=== PATIENT | female | born 1955 | race Caucasian/White ===

== ENCOUNTER 2016-03-05 18:40 | Emergency (ER) | payer OTHER ==
[2016-03-05 19:01] VITALS: BP 115/95; PULSE 90; RESP 14; TEMP 98.6; O2SAT 93
[2016-03-05] MEDS ORDERED: IBUPROFEN 600 MG TAB PO ONE (19:29)
--- NOTE | 2016-03-05 19:35 | UCPHY ---
H & P Time Seen by Provider: 03/05/16 18:48 Patient Type: New HPI/ROS: 61-year-old female presents complaining of slipped on the 2 stairs leading into her garage and believes she landed on her buttocks is unsure what she did with her right arm but nail has right shoulder and right upper arm pain. No numbness or tingling in her arm. Review of systems General no fever no chills no weakness HEENT no eye pain no eye discharge. No eye redness, no sore throat Respiratory no cough, no shortness of breath Cardiac no chest pain, no peripheral edema GI no abdominal pain, no diarrhea, no constipation, no nausea, no vomiting no flank pain, no hematuria, no dysuria Musculoskeletal positive myalgias, positive joint pain Heme no easy bruising, no easy bleeding Endo no polyuria, no polydipsia Skin no rashes, no pruritus Neuro no syncope, no dizziness, no headaches Psych is no suicidal ideation, no homicidal ideation Past Medical/Surgical History: Depression GERD Social History: Denies alcohol or drug use Smoking Status: Never smoked Physical Exam: Alert and oriented in no acute distress nontoxic appearance, afebrile Atraumatic normocephalic Neck no JVD Lungs clear to auscultation, no respiratory distress Heart regular rate and rhythm Extremities no cyanosis clubbing edema Right upper extremity with tenderness to palpation at mid humerus, no deformity no swelling no ecchymosis Decreased range of motion at shoulder No tenderness to palpation at elbow rest fingers Good distal pulses Constitutional: Initial Vital Signs Temperature (C) 37 C 03/05/16 18:50 Heart Rate 90 03/05/16 18:50 Respiratory Rate 14 03/05/16 18:50 Blood Pressure 115/95 H 03/05/16 18:50 O2 Sat (%) 93 03/05/16 18:50 O2 Delivery Mode Room Air Allergies/Adverse Reactions: Penicillins Allergy (Verified 03/05/16 18:49) Home Medications: Medication Instructions Recorded PRILOSEC 03/05/16 Prozac 20 MG (*) 03/05/16 Medical Decision Making - Diagnostics Imaging: Right shoulder Right humerus ED Course/Re-evaluation: Patient seen and evaluated for right shoulder and upper arm pain after a fall onto steps at home X-rays reveal No fracture no dislocation Impression Right shoulder sprain Plan Sling Follow-up primary care physician - Data Points Medications Given: Discontinued Medications Ibuprofen (Motrin) 200 mg PO EDNOW ONE Stop: 03/05/16 19:48 Last Admin: 03/05/16 19:49 Dose: 200 mg Ibuprofen (Motrin) 400 mg PO EDNOW ONE Stop: 03/05/16 19:48 Last Admin: 03/05/16 19:50 Dose: 400 mg Departure - Departure Disposition: Home, Routine, Self-Care Clinical Impression: Right shoulder strain, Upper arm pain Condition: Good Instructions: Shoulder Sprain (ED) Referrals: Sarah Gardiner MD [Primary Care Provider] - As per Instructions Stand Alone Forms: Work Excuse - PQRS PQRS Measurement: Not applicable
[2016-03-05] MEDS ORDERED: IBUPROFEN 200 MG TAB PO ONE ×2 (19:47)
--- NOTE | 2016-03-05 19:52 | DX ---
Right shoulder - 3 views dated March 05, 2016 Indication: Fall. Pain. Findings: The bones are anatomically aligned. No acute fracture. Minimal osteoarthritis involves the acromioclavicular joint. The coracoclavicular and acromioclavicular intervals are normal. Impression: Negative. No acute fracture or dislocation.
--- NOTE | 2016-03-05 19:55 | DX ---
Right humerus - 2 views dated March 05, 2016 Indication: Pain. Fall. Findings: The humerus is intact and anatomically aligned. No acute fracture. Impression: Negative. No acute fracture.
== END 2016-03-05 20:35 | disposition home or self-care (01) ==
LOC: CED 18:40
DX: S43.401A Unspecified sprain of right shoulder joint, initial encounter (principal); M79.621 Pain in right upper arm; W10.9XXA Fall (on) (from) unspecified stairs and steps, initial encounter
CPT/HCPCS: 73030-PO; 73060-PO; 99203-PO; G0463-PO

== ENCOUNTER → 2017-02-23 | Outpatient (CLI) | payer OTHER | LOC: FIMAGING 12:52 | PROVIDERS: ATTEND Family Medicine | DX: Z12.31 Encounter for screening mammogram for malignant neoplasm of breast (principal) | CPT/HCPCS: G0202 ==

== ENCOUNTER → 2018-03-07 | Outpatient (CLI) | payer OTHER | LOC: FIMAGING 15:40 | PROVIDERS: ATTEND Family Medicine | DX: Z12.31 Encounter for screening mammogram for malignant neoplasm of breast (principal) ==

== ENCOUNTER → 2018-03-20 | Outpatient (CLI) | payer OTHER | LOC: FIMAGING 14:17 | PROVIDERS: ATTEND Family Medicine | DX: R92.8 Other abnormal and inconclusive findings on diagnostic imaging of breast (principal) ==

== ENCOUNTER → 2018-07-08 | Outpatient (CLI) | payer OTHER | LOC: EMCIMAGING 07:23 | PROVIDERS: ATTEND Family Medicine | DX: R10.9 Unspecified abdominal pain (principal); D25.0 Submucous leiomyoma of uterus | CPT/HCPCS: 76700-PN; 76856-PN ==